=== PATIENT | female | born 1975 | race Caucasian/White ===

== ENCOUNTER 2017-01-27 06:45 | Emergency (ER) | payer OTHER ==
[2017-01-27 06:56] VITALS: BP 139/105; PULSE 127; TEMP 99.8; BMI 23.4
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
== END 2017-01-27 09:50 | disposition left against medical advice (07) ==
LOC: JER 06:45
PROC: 0HQ1XZZ Repair Face Skin, External Approach (ICD-10-PCS; principal; 2017-01-27)
DX: S01.111A Laceration without foreign body of right eyelid and periocular area, initial encounter (principal); Y04.2XXA Assault by strike against or bumped into by another person, initial encounter; Y93.89 Activity, other specified; Y92.9 Unspecified place or not applicable; Z87.891 Personal history of nicotine dependence
CPT/HCPCS: 12011-25; 84703; 99283-25